=== PATIENT | female | born 1985 | race Caucasian/White ===

== ENCOUNTER 2019-11-10 15:01 | Inpatient (IN) | payer OTHER ==
[~2019-11-10] VITALS: Ht 160 cm; Wt 73.5 kg
[2019-11-30] MEDS ORDERED: PRENATAL TABLE1 EAC1 PO (02:37)
== END 2019-12-02 11:37 | disposition home or self-care (01) | DRG 807 ==
LOC: OB/GYN 11-29 10:30 → SURG-SUITE 11-30 02:23 → LDR 11-30 02:23 → SURG-SUITE 11-30 08:46
PROVIDERS: ADMIT Obstetrics & Gynecology Maternal & Fetal Medicine
PROC: 10E0XZZ Delivery of Products of Conception, External Approach (ICD-10-PCS; principal; 2019-11-30)
PROC: 0KQM0ZZ Repair Perineum Muscle, Open Approach (ICD-10-PCS; 2019-11-30)
PROC: 4A1HXCZ Monitoring of Products of Conception, Cardiac Rate, External Approach (ICD-10-PCS; 2019-11-30)
DX: O70.1 Second degree perineal laceration during delivery (principal); Z37.0 Single live birth; Z3A.39 39 weeks gestation of pregnancy; Z22.330 Carrier of Group B streptococcus

== ENCOUNTER 2019-11-29 11:48 | Outpatient (CLI) | payer OTHER ==
[2019-11-30] MEDS ORDERED: PRENATAL TABLE1 EAC1 PO (02:37)
== END 2019-11-29 12:24 | disposition home or self-care (01) ==
LOC: NST 11:48
DX: Z34.83 Encounter for supervision of other normal pregnancy, third trimester (principal)